=== PATIENT | male | born 1980 | race Caucasian/White ===

== ENCOUNTER 2021-06-01 11:15 | Inpatient (IN) | payer BC ==
[~2021-06-01] VITALS: Ht 172.7 cm; Wt 92.1 kg
--- NOTE | 2021-06-01 11:20 | NUR ---
PT BIBRA FROM HOME C/O "ABDOMINAL PAIN" PT ADMITS TO DRINKING ALCOHOL, NOTED DISTENSION, NOTED JAUNDICE. DUCK TAPE NOTED WRAPPED TO PT'S ABDOMEN AND FEET WITH NOTED SWELLING. L[facility]OR[facility] APPARATUS GLASS BLOWER, VERBALLY RESPONSIVE STATES LIVE WITH HIS BROTHER. GOWNED AND PLACED ON MONITOR. AWAITING MD ARMAS.
--- NOTE | 2021-06-01 11:25 | NUR ---
DR MATT AT BEDSIDE FOR EVAL.
--- NOTE | 2021-06-01 11:32 | NUR ---
IV LINE STARTED BLOOD DRAWN AND SENT TO LAB.
[2021-06-01 11:42] LABS: BASOPHILS # (AUTO) 0.1 K/uL (0.0-0.2); BASOPHILS % (AUTO) 0.7 % (0.0-2.0); EOSINOPHILS % (AUTO) 1.9 % (0.0-6.0); HEMATOCRIT 37 % (39-51); HEMOGLOBIN 12.8 g/dL (13.5-17.5); LYMPHOCYTES # (AUTO) 2.6 K/uL (0.8-4.8); LYMPHOCYTES % (AUTO) 17.6 % (20.0-44.0); MEAN CORPUSCULAR HGB CONC 34 g/dl (31.0-36.0); MEAN CORPUSCULAR VOLUME 106 fL (80-96); MONOCYTES # (AUTO) 1.1 K/uL (0.1-1.30); MONOCYTES % (AUTO) 7.5 % (2.0-12.0); NEUTROPHILS # (AUTO) 10.9 K/uL (1.8-8.9); NEUTROPHILS % (AUTO) 72.3 % (43.0-81.0); PLATELET COUNT (AUTO) 202 K/uL (150-450); RED BLOOD CELL COUNT(AUTO) 3.51 MIL/uL (4.5-6.0); WHITE BLOOD COUNT (AUTO) 15.1 K/uL (4.3-11.0)
--- NOTE | 2021-06-01 11:51 | NUR ---
UNABLE TO PROVIDE URINE SAMPLE AT THIS TIME. URINAL PROVIDED AT BEDSIDE.
--- NOTE | 2021-06-01 11:58 | NUR ---
COVID ANTIGEN SWAB DONE AND SENT TO THE LAB
--- NOTE | 2021-06-01 11:58 | NUR ---
THE PATIENT IS TAKEN TO CT [facility]IA [facility]
[2021-06-01 12:03] LABS: ACETAMINOPHEN 10 ug/ml (10-30); ALANINE AMINOTRANSFERASE 105 U/L (12-78); ALBUMIN 1.7 g/dL (3.4-5.0); ALCOHOL, BLOOD 146 mg/dL (0-0); ALKALINE PHOSPHATASE 247 U/L (46-116); ASPARTATE AMINOTRANSFERASE 183 U/L (15-37); BILIRUBIN,DIRECT 11.1 mg/dL (0.0-0.2); BILIRUBIN,TOTAL 14.1 mg/dL (0.2-1.0); CALCIUM, SERUM 7.6 mg/dL (8.5-10.1); CARBON DIOXIDE 22 mmol/L (21-32); CHLORIDE 92 mmol/L (98-107); CREATININE 0.8 mg/dL (0.6-1.3); GLUCOSE 91 mg/dL (74-106); POTASSIUM 3.6 mmol/L (3.5-5.1); SODIUM SERUM 122 mmol/L (136-145); TOTAL PROTEIN, SERUM 7.9 g/dL (6.4-8.2); UREA NITROGEN, BLOOD 4 mg/dL (7-18)
--- NOTE | 2021-06-01 12:15 | NUR ---
THE PATIENT IS BACK FROM CT VIA [facility]
[2021-06-01] MEDS ORDERED: PIPERACILLIN /TAZOBACTAM 3.375 G in IV D5W 50 ML IV ONE (13:00)
--- NOTE | 2021-06-01 13:04 | NUR ---
CALLED NURSING SUP REGARDING PT BED
--- NOTE | 2021-06-01 13:09 | NUR ---
URINE COLLECTED AND SENT TO THE LAB
--- NOTE | 2021-06-01 13:19 | NUR ---
US TECH AT THE BEDSIDE
[2021-06-01] MEDS ORDERED: ONDANSETRON HCL/PF 4 MG/2 ML VIAL IVP PRN (13:30)
[2021-06-01] MEDS ORDERED: LORAZEPAM INJ 2 MG/ML VIAL IV PRN (13:30)
[2021-06-01] MEDS ORDERED: IV NS 0.9% 1,000 ML IV PRN (13:30)
[2021-06-01] MEDS ORDERED: Z GUARD REMEDY 4 OZ OINT TP PRN (13:30)
[2021-06-01] MEDS ORDERED: MORPHINE SULFATE INJ 2 MG/ML DISP.SYRIN IV PRN (13:30)
[2021-06-01 13:47] LABS: BILIRUBIN,URINE LARGE (NEGATIVE); COLOR,URINE DARK YELLOW (YELLOW); LEUKOCYTE ESTERASE ,URINE NEGATIVE (NEGATIVE); NITRITE, URINE NEGATIVE (NEGATIVE); PH,URINE 6.5 (5.0-8.0); PROTEIN,URINE 30 mg/dl (NEGATIVE); UGLUCOSE 100 MG/DL mg/dL (NEGATIVE)
[2021-06-01 14:34] LABS: BACTERIA,URINE Few /HPF (None Seen); RBC,URINE 0-2 /HPF (0-2); SQUAMOUS EPITHELIAL CELL,UR Few /HPF (None Seen); WBC,URINE 0-3 /HPF (0-3)
[2021-06-01 14:36] LABS: MUCUS,URINE Moderate /LPF (None Seen)
[2021-06-01] MEDS ORDERED: LORAZEPAM INJ 2 MG/ML VIAL ONE (15:02)
[2021-06-01 15:37] VITALS: BP 125/65
[2021-06-01] MEDS ORDERED: LACTULOSE 10 G/15 ML UDC (PYXIS) PO SCH (17:00)
--- NOTE | 2021-06-01 18:35 | NUR ---
CALLED NURSING SUP REGARDING PT BED
--- NOTE | 2021-06-01 19:58 | NUR ---
Patient does not wish to proceed with medical care recommended by DARWIN RODRIGUEZ. Patient given information related to possible complications, up to and including , which could occur as a result of leaving the hospital at this time. Patient verbalizes understanding of risks involved due to leaving against medical advice. Patient has signed AMA form.
[2021-06-01] MEDS ORDERED: PIPERACILLIN /TAZOBACTAM 3.375 G in IV D5W 50 ML IV SCH (21:00)
[2021-06-02] MEDS ORDERED: PANTOPRAZOLE 40 MG TABLET.DR PO SCH (07:30)
[2021-06-02] MEDS ORDERED: THIAMINE HCL 100 MG TABLET PO SCH (09:00)
== END 2021-06-01 20:00 | disposition left against medical advice (07) | DRG 432 ==
LOC: ER 11:18 → TRANSITION 13:32
PROVIDERS: ADMIT Nurse Practitioner Acute Care; ATTEND Nurse Practitioner Acute Care
DX: K70.40 Alcoholic hepatic failure without coma (principal); J18.9 Pneumonia, unspecified organism; E44.0 Moderate protein-calorie malnutrition; E87.1 Hypo-osmolality and hyponatremia; K86.0 Alcohol-induced chronic pancreatitis; F10.188 Alcohol abuse with other alcohol-induced disorder; R10.9 Unspecified abdominal pain; D53.9 Nutritional anemia, unspecified; K52.9 Noninfective gastroenteritis and colitis, unspecified; E66.9 Obesity, unspecified; E88.09 Other disorders of plasma-protein metabolism, not elsewhere classified; Z20.822 Contact with and (suspected) exposure to COVID-19; D72.829 Elevated white blood cell count, unspecified; Y90.6 Blood alcohol level of 120-199 mg/100 ml; R74.01 Elevation of levels of liver transaminase levels; F32.A Depression, unspecified; Z68.30 Body mass index [BMI] 30.0-30.9, adult; K80.20 Calculus of gallbladder without cholecystitis without obstruction
CPT/HCPCS: 36415; 76705-TC; 80048-TC; 80076-TC; 81001; 82140-TC; 85025-TC; G0378; G0480; J2060; J2543; J7060